=== PATIENT | female | born 1940 | race Caucasian/White ===

== ENCOUNTER 2017-10-12 08:03 | Day surgery (SDC) | payer MEDICARE ==
[2017-09-28 12:34] VITALS: BMI 21.4
[2017-10-12] MEDS ORDERED: Propofol 10 mg/ml Inj (20 ML) ONE (09:25)
[2017-10-12] MEDS ORDERED: Sodium Chloride 0.9% 1,000 ML IV SCH (10:15)
[2017-10-12 11:21] VITALS: BP 148/59; RESP 16; TEMP 97.6
[2017-10-12 11:38] VITALS: PULSE 59; O2SAT 96
== END 2017-10-12 11:57 | disposition home or self-care (01) ==
LOC: EDBD 08:03 → ENDO 08:03
PROVIDERS: ATTEND Specialist
DX: D50.9 Iron deficiency anemia, unspecified (principal); D12.5 Benign neoplasm of sigmoid colon; K57.30 Diverticulosis of large intestine without perforation or abscess without bleeding; I10 Essential (primary) hypertension; E03.9 Hypothyroidism, unspecified; R73.03 Prediabetes; Z88.6 Allergy status to analgesic agent
CPT/HCPCS: 45380; 88305; J2704; J7030